=== PATIENT | female | born 1960 | race Caucasian/White ===

== ENCOUNTER 2017-08-17 14:00 | Emergency (ER) | payer MEDICAID ==
[2017-08-17 14:37] VITALS: BP 154/68
[2017-08-17] MEDS ORDERED: oxyCODONE 5 MG Tab PO ONE (14:46)
[2017-08-17] MEDS ORDERED: Acetaminophen/oxyCODONE 325-5 MG Tab ONE (15:00)
[2017-08-17] MEDS ORDERED: Morphine 2 MG/ML Syringe ONE (16:36)
[2017-08-17] MEDS ORDERED: Morphine 2 MG/ML Syringe IVPUSH ONE (16:37)
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
--- NOTE | 2017-08-18 17:23 | CR ---
DATE OF SERVICE: 08/17/17 CLINICAL DATA: fell LEFT WRIST: There is an impacted comminuted intra-articular fracture through the distal radius. There is also a mildly displaced oblique avulsion fracture through the ulnar styloid. No other acute abnormalities. [id number] MTDD
== END 2017-08-17 17:17 | disposition home or self-care (01) ==
LOC: LB.ED 14:00
DX: S52.532A Colles' fracture of left radius, initial encounter for closed fracture (principal); S52.612A Displaced fracture of left ulna styloid process, initial encounter for closed fracture; W11.XXXA Fall on and from ladder, initial encounter; Z88.8 Allergy status to other drugs, medicaments and biological substances; Z91.09 Other allergy status, other than to drugs and biological substances
CPT/HCPCS: 29125; 73100-LT; 73110-LT; 96374; 99283-25; A9270-GY; J2270